=== PATIENT | male | born 1985 | race Caucasian/White ===

== ENCOUNTER 2021-04-12 14:17 | Inpatient (IN) | payer MEDICAID, SELFPAY ==
[2021-04-12 14:19] VITALS: BP 131/94; PULSE 79; RESP 12; TEMP 36.7; O2SAT 97; BMI 27.3
--- NOTE | 2021-04-12 14:19 | ECG_ITS ---
[facility] Test Date: 2021-04-12 Pat Name: Duncan Tim Department: Room: Gender: Male Legal Consultant: : 1985 Requested By: Sva Rios Order Number: [id number] Norris MD: Monse Ramos M.D. Measurements Intervals [place] Rate: 61 P: 37 IN: 144 QRS: 22 QRSD: 98 T: 23 QT: 433 QTc: 438 Interpretive Statements SINUS RHYTHM POSSIBLE RIGHT VENTRICULAR CONDUCTION DELAY [RSR (QR) IN V1/V2] No previous ECG available for comparison Electronically Signed On 04-12-2021 16:24:47 BURSAR by Monse Ramos M.D. [id number]
--- NOTE | 2021-04-12 14:23 | ED_ITS ---
HPI - Overdose General: Chief Complaint: Overdose Stated Complaint: OVERDOSE Time Seen by Provider: 04/12/21 14:18 Limitations: altered mental status History of Present Illness: HPI Narrative: Mr. Tim is a 35-year-old gentleman with reported psychiatric history who presents to the emergency department due to altered mental status. The patient reportedly took approximately 15 baclofen earlier today. He reported to others that this was an attempt to kill himself as he [facility] not [facility] to go to [facility] and has multiple court dates coming up. Upon arrival patient is somnolent and provides limited history. He is unsure of what time he took any medications or if he did. It is unclear whether there are any other changes in health, other specific provoking or exacerbating factors, or any coingestants. Patient's mother, upon her arrival, reports that patient did have injectable antipsychotic yesterday. Does have Xanax, gabapentin, and Ambien however the patient only reported that he took the baclofen. Review of Systems General: Reports: ROS unobtainable due to mental status Physical Exam Narrative: EXAM NARRATIVE: GENERAL/CONSTITUTIONAL -mildly ill-appearing. Somnolent Eyes - PERRL, 3 mm, no conjunctival injection ENMT - Atraumatic external nose and ears. Moist mucous membranes NECK - supple. trachea midline CARDIOVASCULAR - regular rate and rhythm. Peripheral pulses 2+ and equal RESPIRATORY - transmitted upper airway noises, intermittently sonorous, clear to auscultation bilaterally. No retractions or accessory muscle use. ABDOMEN/GI - Nontender/Nondistended. No tenderness to percussion or evidence of peritonitis MSK - Extremities without obvious deformity or tenderness to palpation SKIN - Warm, Dry NEURO - somnolent. Awakes to verbal loud stimulation, moves all extremities. Course ED course: - Patient was seen and evaluated by me at bedside - Patient placed on cardiac monitors, IV access obtained - Initial evaluation notable for exam as noted above. - Given degree of somnolence we tried a dose of Narcan without significant improvement. Patient did not tolerate nasopharyngeal airway. - Labs notable for no leukocytosis. No acute metabolic abnormality or ABG abnormality to explain patient's symptoms. Urinary cath sample obtained and does have blood, no other clinical history leads me to believe that additional evaluation of this is warranted, I believe this was due to cath trauma - Given degree of altered mental status without definite history head imaging is warranted. Imaging notable for no acute abnormality. No acute abnormality on chest x-ray - Upon serial reexamination after treatment the patient was improved, though somnolent through much of ED evaluation he did ambulate prior to being admitted to the neuropsychiatric unit. - Based on patient history, evaluation, labs, and imaging as interpreted the most likely cause of the patient's condition is intentional drug overdose. Discussed case with poison control. - Based on ED evaluation at this point there is no obvious condition that would preclude the patient from inpatient management of psychiatric concerns. - Psychiatry service was contacted and agreed admit the patient. - Patient was admitted without further deterioration or significant events. Vital Signs: Vital signs: Vital Signs Temperature 97.3 F L 04/14/21 20:26 Pulse Rate 89 04/14/21 20:26 Respiratory Rate 17 04/15/21 12:49 Blood Pressure 130/88 04/14/21 20:26 Pulse Oximetry 95 04/14/21 20:26 MDM - Overdose Medical Records: Attestation: I reviewed the patient's medical records. Lab Data: Attestation: I reviewed the patient's lab results. Labs: Lab Results 04/12/21 04/12/21 04/12/21 15:04 15:47 15:47 WBC 8.0 10^3/uL 10^3/ uL (4.0-10.0) RBC 6.07 10^6/uL H 10 ^6/uL (4.1-5.3) Hgb 16.6 g/dL g/dL (11.7-16.6) Hct 51.7 % % (42.0-52.0) MCV 85.2 fl fl (80-94) MCH 27.3 pg L pg (28.0-34.0) MCHC 32.1 g/dL g/dL (30.0-36.0) RDW 14.2 % % (12.1-15.1) Plt Count 305 10^3/cmm 10^3 /cmm (130-400) MPV 9.9 fL fL (7.4-10.4) Neut % (Auto) 70.2 % % Lymph % (Auto) 21.0 % % [place] % (Auto) 6.3 % % Eos % (Auto) 1.7 % % Baso % (Auto) 0.6 % % Neut # (Auto) 5.63 10^3/uL 10^3 /uL (1.8-7.7) Lymph # (Auto) 1.7 10^3/uL 10^3/ uL (0.8-4.8) [place] # (Auto) 0.5 10^3/uL 10^3/ uL (0.2-0.9) Eos # (Auto) 0.1 10^3/uL 10^3/ uL (0.0-0.8) Baso # (Auto) 0.1 10^3/uL 10^3/ uL (0.0-0.1) Nucleated RBC % (a uto) 0 % % Nucleated RBCs # 0.0 /100WBC /100W BC Specimen Type Arterial Sample Site Radial, left ABG pH 7.41 (7.35-7.45) ABG pCO2 40.5 mmHg mmHg (35-45) ABG pO2 101.0 mmHg H mmHg (80.0-100.0) ABG HCO3 25.5 mmol/L mmol/ L (22-26) ABG Base Excess 0.8 mmol/L mmol/L (-2.0-2.0) Chris Test Pos Hematocrit 51.7 % % (42-52) O2 Delivery Device None Staff Mine Warfare Officer ID Hensa Sodium 141 mmol/L mmol/L (136-145) Potassium 4.0 mmol/L mmol/L (3.5-5.1) Chloride 105 mmol/L mmol/L (98-107) Carbon Dioxide 22 mmol/L mmol/L (22-29) Anion Gap 18.0 (5-19) BUN 7 mg/dL mg/dL (6-20) Creatinine 0.6 mg/dL L mg/dL (0.7-1.2) GFR Calculation 153.3 mL/min H mL /min (90-130) Glucose 100 mg/dL mg/dL (65-115) POC Glucose Calculated Osmolal ity 290 mOsm/kg mOsm/ kg (285-295) Calcium 8.8 mg/dL mg/dL (8.5-10.5) Magnesium 2.1 mg/dL mg/dL (1.7-2.3) Total Bilirubin 0.6 mg/dL mg/dL (0.15-1.2) AST 8 U/L U/L (0-40) ALT 16 U/L U/L (0-41) Alkaline Phosphata se 87 IU/L IU/L (40-130) Total Protein 7.2 g/dL g/dL (6.6-8.7) Albumin 4.3 g/dL g/dL (3.5-5.2) Globulin 2.9 g/dL g/dL (1.3-4.6) TSH 0.40 uIU/mL uIU/m L (0.27-4.20) Urine Color Urine Appearance Urine pH Ur Specific Gravit y Urine Protein Urine Glucose (UA) Urine Ketones Urine Blood Urine Nitrate Urine Bilirubin Urine Urobilinogen Ur Leukocyte Haley ase Urine RBC Urine WBC Ur Squamous Epith Cells Amorphous Sediment Urine Bacteria Urine Mucus Salicylates < 0.3 mg/dL L mg/ dL (3-10) Urine Opiates Scre en Acetaminophen < 5.0 ug/mL L ug/ mL (10-30) Ur Barbiturates Sc reen Ur Phencyclidine S crn Ur Amphetamines Sc reen U Benzodiazepines Scrn Urine Cocaine Scre en U Marijuana (THC) Screen Ethyl Alcohol < 10 mg/dL mg/dL (0-10) 04/12/21 04/12/21 04/12/21 15:56 16:14 16:14 WBC RBC Hgb Hct MCV MCH MCHC RDW Plt Count MPV Neut % (Auto) Lymph % (Auto) [place] % (Auto) Eos % (Auto) Baso % (Auto) Neut # (Auto) Lymph # (Auto) [place] # (Auto) Eos # (Auto) Baso # (Auto) Nucleated RBC % (a uto) Nucleated RBCs # Specimen Type Sample Site ABG pH ABG pCO2 ABG pO2 ABG HCO3 ABG Base Excess Chris Test Hematocrit O2 Delivery Device Staff Mine Warfare Officer ID Sodium Potassium Chloride Carbon Dioxide Anion Gap BUN Creatinine GFR Calculation Glucose POC Glucose 110 mg/dL mg/dL (70-110) Calculated Osmolal ity Calcium Magnesium Total Bilirubin AST ALT Alkaline Phosphata se Total Protein Albumin Globulin TSH Urine Color Yellow (Yellow) Urine Appearance Sl hazy (CLEAR) Urine pH 6.5 (5-7) Ur Specific Gravit y 1.020 (1.005-1.030) Urine Protein Neg (Negative) Urine Glucose (UA) Norm (Normal) Urine Ketones Negative (Negative) Urine Blood 3+ H (Negative) Urine Nitrate Negative (Negative) Urine Bilirubin Neg (Negative) Urine Urobilinogen Norm mg/dL mg/dL (Negative) Ur Leukocyte Haley ase Negative (Negative) Urine RBC 40-50 /hpf H /hpf (0-2) Urine WBC 5-10 /hpf H /hpf (0-5) Ur Squamous Epith Cells 5-10 /hpf H /hpf (0-5) Amorphous Sediment Not Reportable Urine Bacteria 1+ /hpf H /hpf (NONE) Urine Mucus 2+ /hpf /hpf Salicylates Urine Opiates Scre en Negative ng/mL ng /mL (Negative) Acetaminophen Ur Barbiturates Sc reen Negative ng/mL ng /mL (Negative) Ur Phencyclidine S crn Negative ng/mL ng /mL (Negative) Ur Amphetamines Sc reen Positive ng/mL H ng/mL (Negative) U Benzodiazepines Scrn Positive ng/mL H ng/mL (Negative) Urine Cocaine Scre en Negative ng/mL ng /mL (Negative) U Marijuana (THC) Screen Positive ng/mL H ng/mL (Negative) Ethyl Alcohol EKG Data^: EKG 1: Attestation: I personally reviewed and interpreted this EKG as follows: EKG interpretation date: 04/12/21 EKG interpretation time: 16:32 Interpretation: Twelve-lead EKG shows a regular rhythm at a rate of 75. MT interval 151, QRS duration 94, QTc 454. Normal axis. Interpretation: Sinus rhythm. Discharge Plan Discharge Patient Disposition: Admitted As Inpatient Admit Provider: Cameron Story Clinical Impression: Suicide attempt by multiple drug overdose Condition: Stable Discharge Diet: Regular Discharge Activity: Resume usual activity Coding Level of Care Code ED Sheet Hanger for Susy Zepeda
--- NOTE | 2021-04-12 14:29 | XR_ITS ---
WS: [id number] Exam: XR chest 1V portable [id number] Date/Time of Exam: 04/12/2021 2:29 PM Reason For Exam: AMS, sonorous resp No priors. The lungs are clear. Normal cardiomediastinal structures and regional bony elements. Fusion hardware noted in the lower thoracic and upper lumbar spine. XR/XR chest 1V portable [id number] IMPRESSION: 1. Normal chest.
[2021-04-12 14:37] VITALS: PULSE 66; RESP 10; O2SAT 94
[2021-04-12] MEDS: naloxone 0.4 mg/ml SDV 1 MG IVP (14:38)
--- NOTE | 2021-04-12 14:45 | PC.NURSE ---
No response to Aliza, Dr Rios notified
--- NOTE | 2021-04-12 14:59 | CT_ITS ---
WS: [id number] CT HEAD TECHNIQUE: Noncontrast CT of the head obtained from the skullbase to the vertex. CLINICAL INFORMATION: AMS COMPARISON: None. DLP: 923.[address] scans at [facility] use at least one of these dose optimization techniques: automated e xposure control; mA and/or kV adjustment per patient size (includes targeted exams where dose is matc hed to clinical indication); or iterative reconstruction. FINDINGS: No evidence of intracranial hemorrhage or mass effect. Ventricular system and basal cisterns are burns nt. Prior postoperative changes right parietal temporal craniotomy with underlying encephalomalacia i n the right parietal and right temporal lobes. Encephalomalacia in the inferior frontal lobes bilater ally likely due to prior trauma. Small amount of encephalomalacia left anterior temporal lobe. Paranasal sinuses and mastoid air cells are well aerated. .Normal visualized soft tissues. CT/CT head wo con* [id number] IMPRESSION: 1. No evidence of intracranial hemorrhage or mass effect. 2. Postoperative changes right parietotemporal craniotomy. 3. 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 4. No acute intracranial findings.
[2021-04-12 15:19] LABS: ABG PCO2 40.5 mmHg (35-45); ABG PH Result 7.41 (7.35-7.45); Arterial Blood Gas Hematocrit 51.7 % (42-52); Base Excess ABG 0.8 mmol/L (-2.0-2.0); Blood Gas Allen Test Pos; Blood Gas Sample Site Radial, left; Blood Gas Sample Type Arterial; HCO3 ABG 25.5 mmol/L (22-26)
[2021-04-12 15:40] VITALS: BP 134/87; PULSE 71; RESP 19; O2SAT 98
--- NOTE | 2021-04-12 15:54 | PC.PHAR ---
pt unable to verify medications-pts family verified pts medications
[2021-04-12 15:55] LABS: Basophils # 0.1 10^3/uL (0.0-0.1); Basophils % 0.6 %; Eosinophils # 0.1 10^3/uL (0.0-0.8); Eosinophils % 1.7 %; Hematocrit 51.7 % (42.0-52.0); Hemoglobin 16.6 g/dL (11.7-16.6); Lymphocytes # 1.7 10^3/uL (0.8-4.8); Mean Corpuscular HGB Conc 32.1 g/dL (30.0-36.0); Mean Corpuscular Hemoglobin 27.3 pg (28.0-34.0); Mean Corpuscular Volume 85.2 fl (80-94); Mean Platelet Volume 9.9 fL (7.4-10.4); Monocytes # 0.5 10^3/uL (0.2-0.9); Monocytes % 6.3 %; Neutrophils # 5.63 10^3/uL (1.8-7.7); Neutrophils % 70.2 %; Nucleated Red Blood Cells % 0 %; Platelet Count 305 10^3/cmm (130-400); Red Blood Count 6.07 10^6/uL (4.1-5.3); Red Cell Distribution Width 14.2 % (12.1-15.1)
[2021-04-12 16:07] VITALS: BP 143/120; PULSE 73; RESP 24; O2SAT 97
[2021-04-12 16:34] LABS: Acetaminophen < 5.0 ug/mL (10-30); Alanine Aminotransferase 16 U/L (0-41); Albumin Level 4.3 g/dL (3.5-5.2); Alcohol Level < 10 mg/dL (0-10); Alkaline Phosphatase 87 IU/L (40-130); Aspartate Amino Transferase 8 U/L (0-40); Blood Urea Nitrogen 7 mg/dL (6-20); Calcium 8.8 mg/dL (8.5-10.5); Carbon Dioxide 22 mmol/L (22-29); Chloride 105 mmol/L (98-107); Globulin 2.9 g/dL (1.3-4.6); Glomerular Filtration Rate 153.3 mL/min (90-130); Glucose 100 mg/dL (65-115); Magnesium 2.1 mg/dL (1.7-2.3); Osmolality Calculated 290 mOsm/kg (285-295); Salicylate < 0.3 mg/dL (3-10); Sodium 141 mmol/L (136-145); Total Bilirubin 0.6 mg/dL (0.15-1.2); Total Protein 7.2 g/dL (6.6-8.7)
[2021-04-12 17:11] LABS: Amphetamines Screen Urine Positive (Negative); Barbiturates Screen Urine Negative (Negative); Benzodiazepines Screen Urine Positive (Negative); Cocaine Screen Urine Negative (Negative); Opiate Screen Urine Negative (Negative); PCP Screen Urine Negative (Negative); THC Screen Urine Positive (Negative)
[2021-04-12 17:19] LABS: Add Urine Culture? Yes; Add Urine Microscopic? YES; Bacteria Urine 1+ /hpf; Bilirubin Urine Neg (Negative); Blood Urine 3+ (Negative); Glucose Urine UA Norm (Normal); Ketones Urine Negative (Negative); Leukocyte Esterase Urine Negative (Negative); Mucus Urine 2+ /hpf; Nitrate Urine Negative (Negative); Protein Urine Neg (Negative); RBC Urine 40-50 /hpf (0-2); Urine Appearance SL Hazy (CLEAR); Urine Color Yellow (Yellow); Urobilinogen Urine Norm (Negative); pH Urine 6.5 (5-7)
[2021-04-12 19:11] LABS: Glucose Point of Care 110 mg/dL (70-110)
[2021-04-12 21:04] LABS: Creatine Phosphokinase 109 U/L (39-308)
[2021-04-12 21:32] VITALS: BP 138/98; PULSE 105; RESP 16; TEMP 36.5; O2SAT 97
[2021-04-12 22:00] VITALS: BP 138/98; PULSE 105; RESP 16; TEMP 36.5; O2SAT 97
[2021-04-13] MEDS: hyDROXYzine 25 mg Capsule 50 MG PO (04:31)
--- NOTE | 2021-04-13 04:37 | PC.NURSE ---
Patient given hydroxizine 50 mg po for c/o anxiety. Anxious affect observed.
[2021-04-13 06:00] VITALS: BP 117/80; PULSE 88; RESP 16; TEMP 36.5; O2SAT 98
[2021-04-13] MEDS: gabapentin 300 mg Capsule PO ×3 (09:19→21:12)
--- NOTE | 2021-04-13 11:01 | W.PM.NPUH&PS ---
Providers/Chief Complaint Admitting Physician: Cameron Story MD Primary Care Provider: Danial Acevedo MD Chief Complaint: OVERDOSE HPI NPU History of Present Illness Duncan Tim is a 35 year old male who presented to the emergency department with the following report: Chief Complaint: Overdose Stated Complaint: OVERDOSE Time Seen by Provider: 04/12/21 14:18 History of Present Illness: HPI Narrative: Mr. Tim is a 35-year-old gentleman with reported psychiatric history who presents to the emergency department due to altered mental status. The patient reportedly took approximately 15 baclofen earlier today. He reported to others that this was an attempt to kill himself as he does not want to go to group home and has multiple court dates coming up. Upon arrival patient is somnolent and provides limited history. He is unsure of what time he took any medications or if he did. It is unclear whether there are any other changes in health, other specific provoking or exacerbating factors, or any coingestants. Patient's mother, upon her arrival, reports that patient did have injectable antipsychotic yesterday. Does have Xanax, gabapentin, and Ambien however the patient only reported that he took the baclofen. He was admitted to the neuropsychiatric unit for definitive treatment of those issues. He presents today reporting that he has been in the psychiatric hospital one time about five years ago. He reports he has had outpatient services but very limited. He reports that he has had medications, but he does not remember what they are. We did review his medications and he did verify upon being told about them, that he in fact was taking them including just recently receiving his Invega Sustenna injection. He reports he smokes cigarettes, denies regular alcohol use. He reports that he does smoke marijuana but denied additional drug use. He denies ever going to a rehab or having a DUI. He is on a 96-hour hold with affidavits from his mother reporting suicidal behavior. He reports that this is just confusion. He reports that he has Baclofen in the medication he takes at home, and that he took four of them, which we discussed would not have been how it was prescribed, and they were ineffective, and then he took four more, which was what caused him to be in a somewhat altered mental status with significant slurring of speech in the emergency department, etc. He does identify that slurring is there at baseline, not as significantly as it was reported then, but he reports that things started many years ago when he fell 25 feet and broke his back and his skull. He had to have multiple cranial surgeries, reportedly had part of his parietal lobe removed, and the impact of that fall, the surgery, and reportedly other events where he fell or had seizures is that he has very poor impulse control, by his admission, gets in trouble for a lot of stupid things that are just errant behaviors, but he denies suicidality and would like to be discharged. He reports that his medications are fine as they are, and he is not interested in staying or changing any medications. PSYCHIATRIC HISTORY: As above. SUBSTANCE ABUSE HISTORY: As above. FAMILY HISTORY: The patient very much wanting to rivera the interview, saying that everybody and his family is fine. DEVELOPMENTAL HISTORY: He denies any issues with his mother?s or delivery of him. He met all developmental milestones on time. He denies any speech therapy, learning support, emotional support, or special education classes. PSYCHOSOCIAL HISTORY: The patient reports he does have a couple of siblings, that he is still close to his mom. He did not report where his dad was or anything about their relationship. He reports his childhood was fine and the psychosocial interview was cut fairly short due to his focus on whether or not he would be discharged. LEGAL HISTORY: He denied any current issues, however after the interview it was identified that mom said that part of the concern for him is that he has some legal issues that are pending, and that he is making comments about self-harm, possibly related to not wanting to deal with those legal issues. MEDICAL HISTORY: TBI, status post cranial surgeries, seizures. Meds NPU Home Medications Medication Instructions Recorded Confirmed Last Taken Type alprazolam 2 mg tablet 2 mg PO BID 08/03/20 04/12/21 Unknown History baclofen 10 mg tablet 10 mg PO TID PRN 08/03/20 04/12/21 04/12/21 History gabapentin 300 mg capsule 300 mg PO TID 08/03/20 04/12/21 Unknown History paliperidone palmitate 234 mg/1.5 234 mg IM Q30D 08/03/20 04/12/21 04/11/21 History mL intramuscular syringe zolpidem 10 mg tablet 10 mg PO DAILY tab 08/03/20 04/12/21 Unknown History Allergies Allergy/AdvReac Type Severity Reaction Status Date / Time amoxicillin [From Augmentin] Allergy Unknown Unknown Verified 08/03/20 15:22 clavulanic acid Allergy Unknown Unknown Verified 08/03/20 15:22 [From Augmentin] sulfamethoxazole Allergy Unknown Unknown Verified 08/03/20 15:22 [From Bactrim] trimethoprim [From Bactrim] Allergy Unknown Unknown Verified 08/03/20 15:22 Mental Status Exam MSE Comments: This is an overweight, white male, with limited dress, grooming, and eye contact. No abnormal movements except for mild psychomotor agitation. Semi-cooperative with exam in mild distress. Speech was slightly increased rate and volume with significant dysarthria, as if he is holding his tongue between his fingers while he is talking. Mood described as better than yesterday; affect irritable. Thought process, organized. Thought content: patient denied any suicidal or homicidal ideation, there were no delusions reported or noted, patient denied any auditory or visual hallucinations. Attention, concentration, and memory appear intact but were not formally tested. He is alert and oriented times three. Insight and judgment are limited, impulse control is impaired. Vitals/I&O/Wt Last Vital Signs Temp 97.7 F 04/13/21 06:00 Pulse 88 04/13/21 06:00 Resp 16 04/13/21 06:00 BP 117/80 04/13/21 06:00 Pulse Ox 98 04/13/21 06:00 Weight last 48 hrs Weight 81.647 kg Data NPU : 04/12/21 15:47 04/12/21 15:47 A&P Assessment and plan (1) Suicide attempt by multiple drug overdose: Status: Acute (2) TBI (traumatic brain injury): Status: Acute (3) Anxiety: Status: Acute (4) Impulse control disorder: Status: Acute Additional A&P Information This is a 35-year-old, white male, with a significant history of TBI and limited mental health issues, with a UDS noted to be positive for amphetamines, benzodiazepines, and marijuana, who presents reporting a desire to be discharged. RECOMMENDATION AND PLAN: 1. Continue current medication. 2. Encourage individual, group, and milieu therapy. 3. Continue q-15 minute checks for safety. 4. Encourage sober living treatment after discharge, at the highest level of care, to which he is willing to commit. Involuntary Hold Information 96 Hour Hold: 96 Hour Involuntary Admission: Yes 96 Hour Hold Ending Date: 04/18/21 96 Hour Hold Ending Time: 17:16 Attestations NPU Medical Necessity Statement*: Inpatient hospitalization is medically necessary and the clinically appropriate intervention, at this time. We will monitor medications and make changes as indicated. Patient will be in the hospital for over two midnights. Likely length of stay is three to five days. We will evaluate for the necessity for the 96-hour hold. Coding Level of Care Code Acute Overlock Collar Setter for Susy Amosd Diagnoses Suicide attempt by multiple drug overdose T50.912A TBI (traumatic brain injury) S06.9X9A Anxiety F41.9 Impulse control disorder F63.9
[2021-04-13] MEDS: nicotine 2 mg Gum BUCCAL ×2 (11:03→21:12)
[2021-04-13 14:00] VITALS: BP 134/92; PULSE 96; RESP 18; TEMP 36.6; O2SAT 98
[2021-04-13] MEDS: zolpidem 5 mg Tablet 10 MG PO (21:41)
[2021-04-13 22:00] VITALS: BP 93/59; PULSE 95; RESP 16; TEMP 37.1; O2SAT 97
[2021-04-14 06:00] VITALS: RESP 17
[2021-04-14] MEDS: gabapentin 300 mg Capsule PO ×3 (09:09→20:35)
[2021-04-14 13:58] VITALS: BP 141/102; PULSE 97; RESP 20; TEMP 36.4; O2SAT 97
--- NOTE | 2021-04-14 19:17 | P.NPUPN_ITS ---
Subjective NPU Subjective: Interval history: Patient presents today continue to focus on being discharged. We agreed we will reach out to his mother who was part of the affidavits about her concerns for safety. She reports that he has been endorsing suicidal thoughts and upset about his upcoming legal issues. He continues to fervently deny any lethality reporting that he has a life and the l quirino that he is happy with and that he would not do anything to mess that up. Mental Status Exam MSE Comments: This is an overweight, white male, with limited dress, grooming, and eye contact. No abnormal movements except for mild psychomotor agitation. Cooperative with exam in mild distress. Speech was slightly increased rate and volume with significant dysarthria, as if he is holding his tongue between his fingers while he is talking. Mood described as better; affect congruent. Thought process, organized. Thought content: patient denied any suicidal or homicidal ideation, there were no delusions reported or noted, patient denied any auditory or visual hallucinations. Attention, concentration, and memory appear intact but were not formally tested. He is alert and oriented times three. Insight and judgment are limited, impulse control is impaired. Vitals/I&O/Wt Last Vital Signs Temp 97.3 F L 04/14/21 20:26 Pulse 89 04/14/21 20:26 Resp 15 04/14/21 20:26 BP 130/88 04/14/21 20:26 Pulse Ox 95 04/14/21 20:26 Data NPU : 04/12/21 15:47 04/12/21 15:47 Micro: Microbiology 04/12/21 16:14 Urine Culture - Preliminary Urine,Clean Catch Microbiology 04/12/21 16:14 Urine,Clean Catch Urine Culture - Preliminary A&P Additional A&P Information (1) Suicide attempt by multiple drug overdose: (2) TBI (traumatic brain injury): (3) Anxiety: (4) Impulse control disorder: Additional A&P Information This is a 35-year-old, white male, with a significant history of TBI and limited mental health issues, with a UDS noted to be positive for amphetamines, benzodiazepines, and marijuana, who presents reporting a desire to be discharged. RECOMMENDATION AND PLAN: 1. Continue current medication. 2. Encourage individual, group, and milieu therapy. 3. Continue q-15 minute checks for safety. 4. Encourage sober living treatment after discharge, at the highest level of care, to which he is willing to commit. 5. We will reach out to his and see what her concerns her thoughts are compared to mom's from the standpoint of his safety and need for 96-hour hold. Involuntary Hold Information 96 Hour Hold: 96 Hour Involuntary Admission: Yes 96 Hour Hold Ending Date: 04/18/21 96 Hour Hold Ending Time: 17:16 Attestations NPU Medical Necessity Statement*: Inpatient hospitalization is medically necessary and the clinically appropriate intervention, at this time. We will monitor medications and make changes as indicated. Likely length of stay is 2-4 days. We will evaluate for the necessity for the 96-hour hold. Coding Level of Care Code Acute Weigh Box Tender for Susy Zepeda
[2021-04-14 20:26] VITALS: BP 130/88; PULSE 89; RESP 15; TEMP 36.3; O2SAT 95
[2021-04-14] MEDS: zolpidem 5 mg Tablet 10 MG PO (20:35)
[2021-04-15 06:00] VITALS: RESP 17
[2021-04-15] MEDS: gabapentin 300 mg Capsule PO (08:52)
--- NOTE | 2021-04-15 12:04 | P.NPUDS_ITS ---
Diagnoses at Discharge Discharge Diagnosis (1) Suicide attempt by multiple drug overdose: Status: Acute (2) TBI (traumatic brain injury): Status: Acute (3) Anxiety: Status: Acute (4) Impulse control disorder: Status: Acute Reason for Visit Reason for Visit: OVERDOSE Brief History: History of Present Illness Duncan Tim is a 35 year old male who presented to the emergency department with the following report: Chief Complaint: Overdose Stated Complaint: OVERDOSE Time Seen by Provider: 04/12/21 14:18 History of Present Illness: HPI Narrative: Mr. Tim is a 35-year-old gentleman with reported psychiatric history who presents to the emergency department due to altered mental status. The patient reportedly took approximately 15 baclofen earlier today. He reported to others that this was an attempt to kill himself as he does not want to go to [facility] and has multiple court dates coming up. Upon arrival patient is somnolent and provides limited history. He is unsure of what time he took any medications or if he did. It is unclear whether there are any other changes in health, other specific provoking or exacerbating factors, or any coingestants. Patient's mother, upon her arrival, reports that patient did have injectable antipsychotic yesterday. Does have Xanax, gabapentin, and Ambien however the patient only reported that he took the baclofen. He was admitted to the neuropsychiatric unit for definitive treatment of those issues. He presents today reporting that he has been in the psychiatric hospital one time about five years ago. He reports he has had outpatient services but very limited. He reports that he has had medications, but he does not remember what they are. We did review his medications and he did verify upon being told about them, that he in fact was taking them including just recently receiving his Invega Sustenna injection. He reports he smokes cigarettes, denies regular alcohol use. He reports that he does smoke marijuana but denied additional drug use. He denies ever going to a rehab or having a DUI. He is on a 96-hour hold with affidavits from his mother reporting suicidal behavior. He reports that this is just confusion. He reports that he has Baclofen in the medication he takes at home, and that he took four of them, which we discussed would not have been how it was prescribed, and they were ineffective, and then he took four more, which was what caused him to be in a somewhat altered mental status with significant slurring of speech in the emergency department, etc. He does identify that slurring is there at baseline, not as significantly as it was reported then, but he reports that things started many years ago when he fell 25 feet and broke his back and his skull. He had to have multiple cranial surgeries, reportedly had part of his parietal lobe removed, and the impact of that fall, the surgery, and reportedly other events where he fell or had seizures is that he has very poor impulse control, by his admission, gets in trouble for a lot of stupid things that are just errant behaviors, but he denies suicidality and would like to be discharged. He reports that his medications are fine as they are, and he is not interested in staying or changing any medications. PSYCHIATRIC HISTORY: As above. SUBSTANCE ABUSE HISTORY: As above. FAMILY HISTORY: The patient very much wanting to rivera the interview, saying that everybody and his family is fine. DEVELOPMENTAL HISTORY: He denies any issues with his mother?s or delivery of him. He met all developmental milestones on time. He denies any speech therapy, learning support, emotional support, or special education classes. PSYCHOSOCIAL HISTORY: The patient reports he does have a couple of siblings, that he is still close to his mom. He did not report where his dad was or anything about their relationship. He reports his childhood was fine and the psychosocial interview was cut fairly short due to his focus on whether or not he would be discharged. LEGAL HISTORY: He denied any current issues, however after the interview it was identified that mom said that part of the concern for him is that he has some legal issues that are pending, and that he is making comments about self-harm, possibly related to not wanting to deal with those legal issues. MEDICAL HISTORY: TBI, status post cranial surgeries, seizures. Hospital Course Hospital Course He slowly acclimated to the individual, group and milieu therapies provided. According to him and his family significant past trauma including TBI exist that informed his current condition. He continued to deny that there was ever any actual suicidal behavior or intent. We work closely with family and social work team to explore safe discharge options. We continued his home medication without any concern. He demonstrated modest improvement and was able to contract for safety outside the hospital prior to discharge. His family was involved in a safety plan and discharge. During the hospitalization, patient had routine laboratory studies which were within normal limits except for few outliers. Additionally there was a general medical evaluation which was also within normal limits and revealed no new acute processes. Discharge Summary: At the time of discharge, he denied psychosis or lethality. Mood and anxiety were well managed. Patient endorsed a plan to avoid all drugs of abuse and follow-up with the aftercare recommendations of the treatment team. Patient was evaluated and deemed to be absent credible lethality, and had achieved the maximum benefit from an inpatient hospitalization, so was discharged. Involuntary Hold Information 96 Hour Hold: 96 Hour Involuntary Admission: Yes 96 Hour Hold Ending Date: 04/18/21 96 Hour Hold Ending Time: 17:16 Mental Status Exam MSE Comments: This is an overweight, white male, with limited dress, grooming, and eye contact. No abnormal movements except for mild psychomotor agitation. Cooperative with exam in no acute distress. Speech was more normal rate and volume with significant dysarthria, as if he is holding his tongue between his fingers while he is talking. Mood described as better; affect congruent. Thought process, organized. Thought content: patient denied any suicidal or homicidal ideation, there were no delusions reported or noted, patient denied any auditory or visual hallucinations. Attention, concentration, and memory appear intact but were not formally tested. He is alert and oriented times three. Insight and judgment are limited, impulse control is impaired. Discharge Data Data Completed and Pending: Completed Studies During Hospitalization Category Date Time Status CT head wo con* [id number] Urgent Cat Scan 04/12/21 14:59 Completed XR chest 1V [place] ble [id number] Urgent Exams 04/12/21 14:29 Completed Vitals: Last Vital Signs Temp 97.3 F L 04/14/21 20:26 Pulse 89 04/14/21 20:26 Resp 17 04/15/21 06:00 BP 130/88 04/14/21 20:26 Pulse Ox 95 04/14/21 20:26 Discharge Plan Discharge Patient Disposition: Home Condition: Stable Prescriptions: Continued alprazolam 2 mg tablet 2 mg PO BID RF: 0 baclofen 10 mg tablet 10 mg PO TID PRN (Reason: Muscle Spasm) RF: 0 gabapentin 300 mg capsule 300 mg PO TID RF: 0 Invega Sustenna 234 mg/1.5 mL syringe 234 mg IM Q30D RF: 0 zolpidem 10 mg tablet 10 mg PO DAILY RF: 0 Discharge Orders: Discharge Order (Routine); Ordered 04/15/21 Ordered By: Cameron Story Referrals: Danial Acevedo MD [Primary Care Provider] - Discharge Diet: Regular Discharge Activity: Resume usual activity Patient Instructions: Opioid Safety Discharge Attestations NPU Time Spent in Discharge Care*: less than 30 min Specific Discharge Activities: Specific discharge activities: educating patient, discussing with catalytic case operator/social workers/dc planners, documenting/other paperwork and evaluating patient/reviewing data Coding Level of Care Code Acute Chg DC note Diagnoses Suicide attempt by multiple drug overdose T50.912A TBI (traumatic brain injury) S06.9X9A Anxiety F41.9 Impulse control disorder F63.9
[2021-04-15 12:49] VITALS: RESP 17
[2021-04-15] MEDS: nicotine 2 mg Gum BUCCAL (13:13)
== END 2021-04-15 14:00 | disposition home or self-care (01) | DRG 918 ==
LOC: ER 18:24 → NP 18:50
PROVIDERS: Admitting Provider Psychiatry & Neurology Psychiatry; Emergency Provider Emergency Medicine; PCP Family Medicine; Visit Provider Psychiatry & Neurology Psychiatry
DX: T50.912A Poisoning by multiple unspecified drugs, medicaments and biological substances, intentional self-harm, initial encounter (principal); R41.82 Altered mental status, unspecified; Z87.820 Personal history of traumatic brain injury; F41.9 Anxiety disorder, unspecified; F63.9 Impulse disorder, unspecified; F19.90 Other psychoactive substance use, unspecified, uncomplicated
CPT/HCPCS: 36415; 36416; 36600; 51701; 70450; 71045; 80053; 80306; 80307; 81001; 82550; 82803; 82962; 83735; 84443; 85025; 87086; 93005; 96361; 96374; 97150; 97165; 99285; J2310

== ENCOUNTER 2021-08-09 19:56 | Emergency (ER) | payer MEDICAID, SELFPAY ==
[2021-08-09 21:03] VITALS: BP 129/89; PULSE 81; RESP 20; TEMP 36.5; O2SAT 98; BMI 31.2
[2021-08-10 00:20] LABS: Basophils # 0.1 10^3/uL (0.0-0.1); Basophils % 0.7 %; Eosinophils # 0.2 10^3/uL (0.0-0.8); Eosinophils % 2.7 %; Hematocrit 47.1 % (42.0-52.0); Hemoglobin 15.3 g/dL (11.7-16.6); Lymphocytes # 3.1 10^3/uL (0.8-4.8); Lymphocytes % 35.9 %; Mean Corpuscular HGB Conc 32.5 g/dL (30.0-36.0); Mean Corpuscular Hemoglobin 28.7 pg (28.0-34.0); Mean Corpuscular Volume 88.4 fl (80-94); Mean Platelet Volume 9.5 fL (7.4-10.4); Monocytes # 0.6 10^3/uL (0.2-0.9); Monocytes % 6.8 %; Neutrophils # 4.63 10^3/uL (1.8-7.7); Neutrophils % 53.4 %; Nucleated Red Blood Cells % 0 %; Platelet Count 370 10^3/cmm (130-400); Red Blood Count 5.33 10^6/uL (4.1-5.3); Red Cell Distribution Width 13.2 % (12.1-15.1); White Blood Count 8.7 10^3/uL (4.0-10.0)
[2021-08-10 00:31] LABS: Alanine Aminotransferase 16 U/L (0-41); Albumin Level 4.3 g/dL (3.5-5.2); Alkaline Phosphatase 128 IU/L (40-130); Anion Gap 15.2 (5-19); Aspartate Amino Transferase 8 U/L (0-40); Blood Urea Nitrogen 11 mg/dL (6-20); Calcium 9.3 mg/dL (8.5-10.5); Carbon Dioxide 26 mmol/L (22-29); Chloride 104 mmol/L (98-107); Globulin 2.9 g/dL (1.3-4.6); Glomerular Filtration Rate 127.6 mL/min (90-130); Glucose 92 mg/dL (65-115); Osmolality Calculated 291 mOsm/kg (285-295); Potassium 4.2 mmol/L (3.5-5.1); Sodium 141 mmol/L (136-145); Total Bilirubin 0.3 mg/dL (0.15-1.2); Total Protein 7.2 g/dL (6.6-8.7)
--- NOTE | 2021-08-10 01:14 | ED_ITS ---
HPI - Extremity Problem General: Chief complaint: Extremity Problem,Nontraumatic Stated complaint: Left leg infection/swollen Time Seen by Provider: 08/10/21 00:59 Source: patient Mode of arrival: ambulatory Limitations: no limitations History of Present Illness: Patient is a 36-year-old male who presents to ED today with complaint of bilateral (L > R) leg redness, swelling, and multiple scabbed abscesses. Patient states he has had symptoms for approximately 2 weeks now. He stated it started with one scabbed abscess and now he has multiple. Patient reportedly chronically itches his lower extremities stating I cannot help it . He has multiple tattoos to the lower extremity-some of them new-s tates he did them himself. He reportedly finished a round of doxycycline x 10 days but did not notice an improvement. He states PCP cultured one of the lesions but he has not heard results. No fevers, chills, body aches. States he does have history of staph. Associated symptoms: Deny chest pain or fever(s) Review of Systems Const: Denies: fever(s), chills, body aches, fatigue or malaise Card: Denies: chest pain Resp: Denies: dyspnea Musc: Reports: extremity pain and extremity swelling; Denies: neck pain, back pain, joint pain, joint swelling, joint warmth or limited range of motion Neuro: Denies: headache(s), numbness in extremities, weakness in extremities or sensory changes Physical Exam Const: COMMON NORMALS: no acute distress, patient oriented x3, no limitations and alert NUTRITIONAL APPEARANCE: overweight ORIENTATION/CONSCIOUSNESS: Yes awake, Yes oriented to person, Yes oriented to place and Yes oriented to time Resp: COMMON NORMALS: normal respiratory effort and clear to auscultation bilaterally AUSCULTATION: clear to auscultation bilaterally Cardio: COMMON NORMALS: regular rate and regular rhythm RATE: regular rate RHYTHM: regular rhythm Extremity: COMMON NORMALS: capillary refill normal and no joint enlargement GENERAL: Yes normal exam except as noted RIGHT LOWER EXTREMITY: Yes lower leg LEFT LOWER EXTREMITY: Yes lower leg OTHER: bilateral L > R leg edema with scattered scabbed lesions with surrounding erythema located to anterior lower leg surfaces; multiple tattoos present-again some of them new that patient states he did himself at home; no lymphangitic streaking Neuro: COMMON NORMALS: patient oriented x3 SENSORIUM/ORIENTATION: Yes alert, Yes oriented to person, Yes oriented to place and Yes oriented to time Course Vital Signs: Vital signs: Vital Signs Temperature 97.7 F 08/09/21 21:03 Pulse Rate 81 08/09/21 21:03 Respiratory Rate 20 H 08/09/21 21:03 Blood Pressure 129/89 08/09/21 21:03 Pulse Oximetry 98 08/09/21 21:03 MDM - Extremity (Nontraumatic) Medical Decision Making Symptoms are consistent with bilateral lower leg cellulitis most likely secondary to staph abscesses. He states he does constantly pick/scratch in his lower extremities. In addition he has recent tattooing to his legs. Patient has failed doxycycline therapy surprisingly. He clinically appears well. His vital signs are perfect. Blood work is unremarkable. At this time I think it is appropriate to start patient on IM Clindamycin here and place him on Clindamycin at home and have him follow-up with PCP. Return to ED precautions given. If he feels outpatient therapy with Clindamycin he may warrant hosp italization. Patient reports allergies to Augmentin and Bactrim. Lab Data : 08/09/21 23:56 08/09/21 23:56 Laboratory Results WBC 8.7 10^3/uL (4.0-10.0) 08/09/21 23:56 RBC 5.33 10^6/uL (4.1-5.3) H 08/09/21 23:56 Hgb 15.3 g/dL (11.7-16.6) 08/09/21 23:56 Hct 47.1 % (42.0-52.0) 08/09/21 23:56 MCV 88.4 fl (80-94) 08/09/21 23:56 MCH 28.7 pg (28.0-34.0) 08/09/21 23:56 MCHC 32.5 g/dL (30.0-36.0) 08/09/21 23:56 RDW 13.2 % (12.1-15.1) 08/09/21 23:56 Plt Count 370 10^3/cmm (130-400) 08/09/21 23:56 MPV 9.5 fL (7.4-10.4) 08/09/21 23:56 Neut % (Auto) 53.4 % 08/09/21 23:56 Lymph % (Auto) 35.9 % 08/09/21 23:56 [place] % (Auto) 6.8 % 08/09/21 23:56 Eos % (Auto) 2.7 % 08/09/21 23:56 Baso % (Auto) 0.7 % 08/09/21 23:56 Neut # (Auto) 4.63 10^3/uL (1.8-7.7) 08/09/21 23:56 Lymph # (Auto) 3.1 10^3/uL (0.8-4.8) 08/09/21 23:56 [place] # (Auto) 0.6 10^3/uL (0.2-0.9) 08/09/21 23:56 Eos # (Auto) 0.2 10^3/uL (0.0-0.8) 08/09/21 23:56 Baso # (Auto) 0.1 10^3/uL (0.0-0.1) 08/09/21 23:56 Nucleated RBC % (auto) 0 % 08/09/21 23:56 Nucleated RBCs # 0.0 /100WBC 08/09/21 23:56 Sodium 141 mmol/L (136-145) 08/09/21 23:56 Potassium 4.2 mmol/L (3.5-5.1) 08/09/21 23:56 Chloride 104 mmol/L (98-107) 08/09/21 23:56 Carbon Dioxide 26 mmol/L (22-29) 08/09/21 23:56 Anion Gap 15.2 (5-19) 08/09/21 23:56 BUN 11 mg/dL (6-20) 08/09/21 23:56 Creatinine 0.7 mg/dL (0.7-1.2) 08/09/21 23:56 GFR Calculation 127.6 mL/min (90-130) 08/09/21 23:56 Glucose 92 mg/dL (65-115) 08/09/21 23:56 Calculated Osmolality 291 mOsm/kg (285-295) 08/09/21 23:56 Calcium 9.3 mg/dL (8.5-10.5) 08/09/21 23:56 Total Bilirubin 0.3 mg/dL (0.15-1.2) 08/09/21 23:56 AST 8 U/L (0-40) 08/09/21 23:56 ALT 16 U/L (0-41) 08/09/21 23:56 Alkaline Phosphatase 128 IU/L (40-130) 08/09/21 23:56 Total Protein 7.2 g/dL (6.6-8.7) 08/09/21 23:56 Albumin 4.3 g/dL (3.5-5.2) 08/09/21 23:56 Globulin 2.9 g/dL (1.3-4.6) 08/09/21 23:56 Discharge Plan Discharge Patient Disposition: Home Clinical Impression: Bilateral cellulitis of lower leg, Multiple abscesses of both legs Condition: Stable Prescriptions: No Action alprazolam 2 mg tablet 2 mg PO BID 0RF baclofen 10 mg tablet 10 mg PO TID PRN (Reason: Muscle Spasm) 0RF gabapentin 300 mg capsule 300 mg PO TID 0RF Invega Sustenna 234 mg/1.5 mL syringe 234 mg IM Q30D 0RF zolpidem 10 mg tablet 10 mg PO DAILY 0RF Discharge Orders: Discharge ED (Routine); Ordered 08/10/21 Ordered By: Darya Torrez Referrals: Danial Acevedo MD [Primary Care Provider] - Coding Level of Care Code ED Director Of Strategic Sourcing for Susy Zepeda
[2021-08-10] MEDS: clindamycin 150 mg/mL SDV 6 mL 600 MG IM (01:53)
[2021-08-10 02:18] VITALS: BP 136/93; PULSE 79; O2SAT 97
== END 2021-08-10 02:24 | disposition home or self-care (01) ==
PROVIDERS: Emergency Medicine; Emergency Provider Physician Assistant; PCP Family Medicine
DX: L03.116 Cellulitis of left lower limb (principal); L03.115 Cellulitis of right lower limb; L02.416 Cutaneous abscess of left lower limb; L02.415 Cutaneous abscess of right lower limb
CPT/HCPCS: 36415; 80053; 85025; 96372; 99283; J3490